=== PATIENT | female | born 1990 | race Caucasian/White ===

== ENCOUNTER 2021-08-26 14:31 | Emergency (ER) | payer BC ==
[~2021-08-26] VITALS: Ht 154.9 cm; Wt 74.4 kg
--- NOTE | 2021-08-26 15:26 | NUR ---
at bedside to examine pt.
[2021-08-26] MEDS: IV NORMAL SALINE 1000 ML BAG IV ONE (16:01)
[2021-08-26 16:07] LABS: HEMATOCRIT 28.4 % (31.2-41.9); MEAN CORPUSCULAR VOLUME 76.4 fL (75.5-95.3); PLATELET COUNT (AUTO) 359 K/uL (179-408)
[2021-08-26 16:11] LABS: CARBON DIOXIDE 26 mmol/L (21-32); CHLORIDE 106 mmol/L (98-107); CREATININE 0.5 mg/dL (0.6-1.3); GLUCOSE 102 mg/dL (74-106); UREA NITROGEN, BLOOD 12 mg/dL (7-18)
[2021-08-26 16:17] LABS: ALANINE AMINOTRANSFERASE 51 U/L (14-59); ALKALINE PHOSPHATASE 43 U/L (50-136); ASPARTATE AMINOTRANSFERASE 59 U/L (15-37); BILIRUBIN,DIRECT 0.1 mg/dL (0.0-0.2); BILIRUBIN,TOTAL 0.3 mg/dL (0.2-1.0); LIPASE 160 U/L (73-393); TOTAL PROTEIN, SERUM 6.6 g/dL (6.4-8.2)
[2021-08-26] MEDS: HYDROCODONE/APAP 5-325MG TABLET PO ONE (16:55)
[2021-08-26] MEDS ORDERED: HYDROCODONE/APAP 5-325MG TABLET ONE (16:56)
[2021-08-26 16:59] LABS: *BILIRUBIN,URIN NEGATIVE (NEGATIVE); *BLOOD, URINE NEGATIVE (NEGATIVE); *CLARITY,URINE CLEAR (CLEAR); *COLOR,URINE YELLOW (YELLOW); *KETONES,URINE NEGATIVE (NEGATIVE); *UROBILINOGEN,URINE 0.2 E.U./dl (NORMAL); LEUKOCYTE ESTERASE ,URINE NEGATIVE (NEGATIVE); NITRITE, URINE NEGATIVE (NEGATIVE); PH,URINE 6.5 (5.0-8.0); UGLUCOSE NEGATIVE (NEGATIVE)
[2021-08-26 17:00] LABS: *URINE HCG, QUAL NEG (NEGATIVE)
[2021-08-26] MEDS ORDERED: IV NORMAL SALINE 250 ML IV ONE (17:17)
[2021-08-26] MEDS ORDERED: IOHEXOL 300MG/ML 100 ML INFUS..BTL ONE (17:17)
[2021-08-26] MEDS ORDERED: SWABABLE VALVE TRANSFER SET EA MC ONE (17:17)
--- NOTE | 2021-08-26 19:03 | NUR ---
report given to incoming shift.
--- NOTE | 2021-08-26 19:08 | NUR ---
pt is A/O x4. did not voice any concerns/issues
--- NOTE | 2021-08-26 19:24 | NUR ---
Patient discharged to home in stable condition. Written and verbal after care instructions given. Patient verbalizes understanding of instructions. Stressed follow up or return to ER for worsening s/s. Patient is accompanied by S.O.
[2021-08-26 19:25] VITALS: BP 125/63
== END 2021-08-26 19:27 | disposition home or self-care (01) ==
LOC: ER 14:31
DX: R10.11 Right upper quadrant pain (principal); S30.1XXA Contusion of abdominal wall, initial encounter; V49.9XXA Car occupant (driver) (passenger) injured in unspecified traffic accident, initial encounter; Y92.410 Unspecified street and highway as the place of occurrence of the external cause
CPT/HCPCS: 36415; 71045; 74177; 80048; 80076; 81003; 83605; 83690; 84703; 85025; 96360; 99285; Q9967; A4663; J7030; J7050